=== PATIENT | female | born 1985 | race Caucasian/White ===

== ENCOUNTER 2016-12-01 15:41 | Emergency (ER) | payer SELFPAY ==
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
--- NOTE | 2016-12-01 17:21 | ED ORDER SUMMARY ---
..... Patient: TRANG ROBERTSON OrderSheet [facility] VisitID: [id number] [place] [address] 31y, F Registration Date/Time: 12/01/2016 ORDER SHEET Weight: 90.7 kg (stated) Allergies: Sulfa Antibiotics, Vicodin GENERAL ORDERS: Knee 4V Left Urgent (16:29 12/01/2016 HBivens A.R.N.P.) (Ack 16:32 IJurca ER Tech1) (17:50 Jonny R.N.) Wrist 3 or 4V Left Urgent (16:29 12/01/2016 HBivens A.R.N.P.) (Ack 16:32 IJurca ER Tech1) (17:50 Jonny R.N.) Shoulder 2V or more Left Urgent (16:29 12/01/2016 HBivens A.R.N.P.) (Ack 16:32 IJurca ER Tech1) (17:50 Jonny R.N.) Chest 2V Urgent (16:30 12/01/2016 HBivens A.R.N.P.) (Ack 16:32 IJurca ER Tech1) (17:50 Jonny R.N.) MEDICATION ORDERS: IV FLUIDS: ORDER SHEET NOTES: [Electronically signed by Leanna Salinas R.N. (17:51 12/01/2016)] [Electronically signed by Mary Sharma A.R.N.P. (18:02 12/01/2016)] [Electronically locked/signed by Leanna Salinas R.N. (17:51 12/01/2016)]
--- NOTE | 2016-12-01 17:21 | ED ORDER SUMMARY ---
..... Patient: TRANG ROBERTSON OrderSheet [facility] VisitID: [id number] [place] [address] 31y, F Registration Date/Time: 12/01/2016 ORDER SHEET Weight: 90.7 kg (stated) Allergies: Sulfa Antibiotics, Vicodin GENERAL ORDERS: Knee 4V Left Urgent (16:29 12/01/2016 HBivens A.R.N.P.) (Ack 16:32 IJurca ER Tech1) (17:50 Jonny R.N.) Wrist 3 or 4V Left Urgent (16:29 12/01/2016 HBivens A.R.N.P.) (Ack 16:32 IJurca ER Tech1) (17:50 Jonny R.N.) Shoulder 2V or more Left Urgent (16:29 12/01/2016 HBivens A.R.N.P.) (Ack 16:32 IJurca ER Tech1) (17:50 Jonny R.N.) Chest 2V Urgent (16:30 12/01/2016 HBivens A.R.N.P.) (Ack 16:32 IJurca ER Tech1) (17:50 Jonny R.N.) MEDICATION ORDERS: IV FLUIDS: ORDER SHEET NOTES: [Electronically signed by Leanna Salinas R.N. (17:51 12/01/2016)] [Electronically signed by Mary Sharma A.R.N.P. (18:02 12/01/2016)] [Electronically locked/signed by Leanna Salinas R.N. (17:51 12/01/2016)]
--- NOTE | 2016-12-01 18:02 | ED MAR SUMMARY ---
..... Medication Administration Record [facility] [address] [place] [id number] Patient: TRANG ROBERTSON Visit ID: [id number] 31y, F Weight: 90.7 kg Height/Length: 66 in BMI: 32.3 ALLERGIES: Sulfa Antibiotics, Vicodin
--- NOTE | 2016-12-01 18:02 | ED MAR SUMMARY ---
..... Medication Administration Record [facility] [address] [id number] Patient: TRANG ROBERTSON Visit ID: [id number] 31y, F Weight: 90.7 kg Height/Length: 66 in BMI: 32.3 ALLERGIES: Sulfa Antibiotics, Vicodin
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
--- NOTE | 2016-12-01 18:02 | ED MED RECONCILIATION SUMMARY ---
Patient: TRANG ROBERTSON Medication Reconciliation Report [facility] VisitID: [id number] [place] [address] 31y, F Registration Date/Time: 12/01/2016 Weight: 90.7 kg Height/Length: 66 in. BMI: 32.3 ALLERGIES: Sulfa Antibiotics, Vicodin The patient's Home Medications are listed below: THE FOLLOWING MEDICATIONS [facility] BE [facility]ILED[facility] The source(s) of the original Home Medication information: Not obtained. The following Medications were given to the patient in the Emergency Department: None. The following Medications were prescribed to the patient: Flexeril 10 mg: Take 1 orally every 8 hours as needed for muscle spasm. Dispense twenty (20). No refills. Substitution is permissible. -- Mary Sharma, A.R.N.P. Ultram 50 mg tablets: take 1-2 orally every 6 hours as needed for pain. Dispense twenty (20). No refills. Substitution is permissible. -- Mary Sharma, A.R.N.P.
--- NOTE | 2016-12-01 18:02 | ED MED RECONCILIATION SUMMARY ---
Patient: TRANG ROBERTSON Medication Reconciliation Report [facility] VisitID: [id number] [place] [address] 31y, F Registration Date/Time: 12/01/2016 Weight: 90.7 kg Height/Length: 66 in. BMI: 32.3 ALLERGIES: Sulfa Antibiotics, Vicodin The patient's Home Medications are listed below: THE FOLLOWING MEDICATIONS NEED TO BE RECONCILED[facility] The source(s) of the original Home Medication information: Not obtained. The following Medications were given to the patient in the Emergency Department: None. The following Medications were prescribed to the patient: Flexeril 10 mg: Take 1 orally every 8 hours as needed for muscle spasm. Dispense twenty (20). No refills. Substitution is permissible. -- Mary Sharma, A.R.N.P. Ultram 50 mg tablets: take 1-2 orally every 6 hours as needed for pain. Dispense twenty (20). No refills. Substitution is permissible. -- Mary Sharma, A.R.N.P.
== END 2016-12-01 17:35 | disposition home or self-care (01) ==
LOC: ED SRH 15:41
DX: S20.212A Contusion of left front wall of thorax, initial encounter (principal); S80.01XA Contusion of right knee, initial encounter; S80.02XA Contusion of left knee, initial encounter; S60.212A Contusion of left wrist, initial encounter; S20.312A Abrasion of left front wall of thorax, initial encounter; S80.211A Abrasion, right knee, initial encounter; S80.212A Abrasion, left knee, initial encounter; S60.812A Abrasion of left wrist, initial encounter; V43.51XA Car driver injured in collision with sport utility vehicle in traffic accident, initial encounter; M79.1 Myalgia